=== PATIENT | female | born 1995 | race Two or more races ===

== ENCOUNTER 2020-09-21 18:28 | Emergency (ER) | payer OTHER ==
[~2020-09-21] VITALS: Ht 177.8 cm; Wt 72.6 kg
[~2020-09-21 18:28] MED LIST: AZITHROMYCIN250 MG PO; TUSSI-PRES LIQ120 ML PO
== END 2020-09-21 23:38 | disposition home or self-care (01) ==
LOC: ER 18:28
DX: R42 Dizziness and giddiness (principal); Z20.828 Contact with and (suspected) exposure to other viral communicable diseases